=== PATIENT | female | born 1980 | race Caucasian/White ===

== ENCOUNTER → 2018-03-01 09:12 | Outpatient (CLI) | payer OTHER, BC, SELFPAY ==
[2018-03-01 11:03] LABS: Anion Gap 9 (5-15); BUN 8 mg/dL (7-18); BUN/Creat Ratio 9.9 RATIO (10-20); Calcium,Total 8.5 mg/dL (8.5-10.1); Chloride 108 mmol/L (98-107); Cholesterol 149 mg/dL (200); Creatinine, Serum 0.81 mg/dL (0.55-1.02); EST Glomerular Filtration Rate 84 mL/min (>60); Est Glom Filt Rate - Afr Amer 102 mL/min (>60); Glucose 90 mg/dL (74-106); High Density Lipoprotein 34 mg/dL; Potassium 3.7 mmol/L (3.5-5.1); Sodium Level 141 mmol/L (136-145); Thyroid Stim Hormone (TSH) 2.62 uIU/mL (0.358-3.74); Triglycerides 157 mg/dL; Very Low Density Lipoprotein 31 mg/dL (5-40)
== END ==
PROVIDERS: Family Provider Family Medicine; PCP Family Medicine; Visit Provider Family Medicine
DX: E78.5 Hyperlipidemia, unspecified (principal); E03.9 Hypothyroidism, unspecified; R03.0 Elevated blood-pressure reading, without diagnosis of hypertension
CPT/HCPCS: 36415; 80048; 80061; 84443

== ENCOUNTER 2019-09-16 11:41 | Observation (INO) | payer OTHER, BC, SELFPAY ==
[2019-09-16] VITALS (7 sets, daily range): BP systolic 150–172; BP diastolic 93–105; PULSE 87–99; RESP 16–18; TEMP 36.1–36.9; O2SAT 97–100; BMI 34.7
--- NOTE | 2019-09-16 11:51 | US_ITS ---
STUDY: ABDOMINAL ULTRASOUND - RIGHT UPPER QUADRANT REASON FOR VISIT: Female, 39 years old RUQ PAIN TECHNIQUE: Ultrasound evaluation of the right upper quadrant was performed with real-time and static irwin-scale imaging. TECHNICAL QUALITY: Adequate. COMPARISON: None. FINDINGS: Liver: The liver measures 17.1 cm. There is normal echogenicity of the liver. The bile ducts are within normal limits. There is hepatic color flow. The direction of portal flow is hepatopetal. There is no demonstrated mass lesion. Gallbladder: Normal distended gallbladder. The gallbladder wall measures 6 mm. There is a positive sonographic Martell''s sign. There is pericholecystic fluid. Gallbladder full of sludge. Gallstone in the neck of the gallbladder. Common Bile Duct (C.B.D.): The common bile duct measures 4 mm. Pancreas: Normal size of the head, body and tail of the pancreas. There is normal echogenicity of the pancreas. There is no demonstrated pancreatic mass or cyst. Right Kidney: Normal size of the right kidney. The right kidney measures 11.4 cm. Normal renal cortex. The right cortex measures 1.4 cm. There is no demonstrated renal mass or cyst. There is no right hydronephrosis. US/Gallbladder IMPRESSION: Stones and sludge in the gallbladder with gallbladder wall thickening, pericholecystic fluid, positive sonographic Martell sign worrisome for acute cholecystitis. Electronically Signed: Ibrahima Davalos MD at 13:09 EST Tel , Service support ,
[2019-09-16] MEDS: 0.9% Normal Saline 1,000 ML 150 ML IV (12:01)
[2019-09-16 12:08] LABS: Absolute Lymphocyte Count 1.47 X10^3/uL (0.83-4.51); Absolute Neutrophil Count 10.2 X10^3/uL (2.0-7.7); Basophil# 0.02 X10^3/uL; Basophil% 0.2 % (0-1); Hematocrit 41.3 % (37-47); Hemoglobin 13.2 g/dL (12.0-15.0); Lymphocyte # 1.47 X10^3/ul (4.0); Lymphocyte % 11.9 % (19-41); Mean Corpuscular Hgb 25.8 pg (27.0-32.0); Mean Corpuscular Volume 80.8 fL (81-99); Mean Platelet Vol. 9.8 fl (6.2-12.0); Monocyte# 0.67 X10^3/uL; Monocyte% 5.4 % (0-10); NRBC Flagged by Analyzer 0 % (0-5); Neutrophil # 10.15 X10^3/uL (2.7-7.7); Neutrophil % 82.2 % (47-70); Platelet Count 333 K/mm3 (150-450); RBC Distribution Width CV 14.6 % (11.6-14.6); RBC Distribution Width SD 42.5 fl (35.1-43.9); Red Blood Count 5.11 M/mm3 (4.2-5.4); White Blood Count 12.4 K/mm3 (4.4-11.0)
[2019-09-16 12:23] LABS: Internal QC Validated? YES +Cl - CLEAR BKGD; Pregnancy, Serum, hCG Quali. NEGATIVE Negative
[2019-09-16 12:26] LABS: AST(SGOT) 13 U/L (15-37); Alanine Aminotransfer ALT/SGPT 22 U/L (13-56); Albumin, Serum 4.1 g/dL (3.2-5.0); Alkaline Phosphatase 88 U/L (45-117); Anion Gap 8 (5-15); BUN 6 mg/dL (7-18); BUN/Creat Ratio 7.2 RATIO (10-20); Bilirubin, Direct 0.18 mg/dL (0.00-0.30); Calcium,Total 9.6 mg/dL (8.5-10.1); Chloride 102 mmol/L (98-107); Creatinine, Serum 0.83 mg/dL (0.55-1.02); EST Glomerular Filtration Rate 81 mL/min (>60); Est Glom Filt Rate - Afr Amer 98 mL/min (>60); Globulin 4.3 g/dL (2.2-4.2); Glucose 120 mg/dL (74-106); Lipase 135 U/L (73-393); Potassium 3.6 mmol/L (3.5-5.1); Protein, Total 8.4 g/dL (6.4-8.2); Sodium Level 136 mmol/L (136-145)
[2019-09-16] MEDS: Morphine 4 MG/ML Syringe IV (14:17)
[2019-09-16] MEDS: proMETHazine 25 MG/ML Syringe 6.25 MG IV (14:17)
[2019-09-16] MEDS: metroNIDAZOLE 500 MG/100 ML BAG 100 MG IV ×2 (14:24→22:11)
--- NOTE | 2019-09-16 15:04 | ED.DCSUM_ITS ---
History of Present Illness Chief Complaint: Abd Pain Informant: Patient Onset: Days Context: Gradual Onset Timing: Waxes and wanes Current Severity: Mild Maximum Severity: Moderate Narrative: She presents with epigastric and right upper quadrant pain for the past several days. She states it started out in the epigastrium but is now localized more to the right upper quadrant with some radiation to her back. She has had nausea. Pain is significantly worse after eating. No fever noted. - Past Medical History (1) Hypothyroid Status: Chronic Past Medical History - Allergies and Home Meds Allergies/Adverse Reactions: Allergies amoxicillin Allergy (Verified 05/11/15 13:40) Hives Primary Care Physician: Lisa Diana MD [Primary Care Provider] - Prior records reviewed: Yes Lives: With Family Smoking Status: Never smoker Review of Systems General: Reports: Chills. Denies: Fever Eyes: Denies: Visual changes - bilaterally ENT: Denies: Bilateral ear pain Cardiovascular: Denies: Chest pain Respiratory: Denies: Dyspnea, Cough Gastrointestinal: Reports: Abdominal pain, Nausea. Denies: Diarrhea Genitourinary: Denies: Dysuria Musculoskeletal: Reports: Back pain Neurological: Denies: Headache Hematologic: Denies: Easy bruising Physical Exam Vital Signs/Narrative: Vital Signs Temp Pulse Resp BP Pulse Ox 09/16/19 14:27 97 16 172/101 H 98 09/16/19 11:42 97 F L 99 16 170/102 H 97 Inital Vital Signs reviewed: Yes General: Well nourished, Well developed Head: Normocephalic ENT: Moist mucous membranes Neck: Supple Cardiovascular: Regular rate, Regular rhythm Respiratory: No distress, CTA bilaterally Abdomen: Soft, Normal bowel sounds, Tender - Right upper quadrant tenderness palpation.. Negative for: Guarding, Rebound tenderness Extremities: Nontender Skin: Normal color, No rash Neurological: Alert, Oriented x3 Psychological: Normal affect Diagnostic/Tx/Re-eval Impressions Gallbladder Ultrasound 09/16/19 11:51 IMPRESSION: Stones and sludge in the gallbladder with gallbladder wall thickening, pericholecystic fluid, positive sonographic Martell sign worrisome for acute cholecystitis. Electronically Signed: Ibrahima Davalos MD at 13:09 EST Tel , Service support , 09/16/19 11:51 US Gallbladder [Gallbladder] [US] Stat Laboratory Results 09/16/19 09/16/19 09/16/19 12:00 12:00 12:00 WBC 12.4 H RBC 5.11 Hgb 13.2 Hct 41.3 MCV 80.8 L MCH 25.8 L MCHC 32.0 RDW Std Deviation 42.5 RDW Coeff of Marissa 14.6 Plt Count 333 MPV 9.8 Immature Gran % (Auto) 0.300 Neut % (Auto) 82.2 H Lymph % (Auto) 11.9 L [place] % (Auto) 5.4 Eos % (Auto) 0.0 Baso % (Auto) 0.2 Absolute Neuts (auto) 10.2 H Absolute Lymphs (auto) 1.47 Nucleated RBC % 0 Sodium 136 Potassium 3.6 Chloride 102 Carbon Dioxide 26.0 Anion Gap 8 BUN 6 L Creatinine 0.83 Estim Creat Clear Calc 91.80 Est GFR (MDRD) Af Amer 98 Est GFR (MDRD) Non-Af 81 BUN/Creatinine Ratio 7.2 L Glucose 120 H Calcium 9.6 Total Bilirubin 0.70 Direct Bilirubin 0.18 AST 13 L ALT 22 Alkaline Phosphatase 88 Total Protein 8.4 H Albumin 4.1 Globulin 4.3 H Lipase 135 Serum , Qual NEGATIVE - Medical Decision Making Patient initially declined anything for pain. After work-up was completed pain was starting to worsen and she was given a dose of morphine. Secondary to her penicillin allergy she was given Cipro and Flagyl. I spoke with Dr. Shen who will admit the patient to his service with plan for OR tomorrow. ED Disposition - Plan for ED Patient: Disposition: Acute Care Hospital [facility] Diagnosis: Cholecystitis Referrals: Lisa Diana MD [Primary Care Provider] -
--- NOTE | 2019-09-16 15:25 | HP.PCM_ITS ---
Problem List (1) Cholecystitis Status: Acute History of Present Illness Date of Admission: 09/16/19 The patient is a 39 year old F who is been having pain since Sunday. She reports that the pain got worse yesterday. She is having nausea but no vomiting. She has never had pain in this area before. She complains of right upper quadrant pain. She does there is no other abdominal pain. No fevers or chills. Past Medical History Past Medical History (Chronic Problems): Chronic Problems Hypothyroid (Chronic) Allergies amoxicillin Allergy (Verified 05/11/15 13:40) Hives Home Medications: Ambulatory Orders Medication Instructions Recorded Levothyroxine [Synthroid] 75 mcg PO DAILY 04/17/15 Acetaminophen [Tylenol] 650 mg PO DAILY PRN PRN 09/16/19 Elderberry Fruit and Flower [Black 1 cap PO DAILY 09/16/19 Elderberry 575 mg Cap] Multivit with Calcium,Iron,Min 1 tab PO DAILY 09/16/19 [Multiple Vitamins For Women] Omeprazole Magnesium [Prilosec Otc] 20 mg PO DAILY 09/16/19 Surgical History: - - Wrist surgery Lives: With Family Smoking Status: Never smoker - *Family History Maternal History Items: Hypertension Review of Systems Constitutional: Denies: Anorexia, Fever Cardiovascular: Denies: Chest Pain Respiratory: Denies: Cough Gastrointestinal: Reports: Abdominal Pain, Nausea. Denies: Hematemesis, Hematochezia, Vomiting Genitourinary: Denies: Dysuria Gynecological: Denies: Breast symptoms Musculoskeletal: Denies: Joint swelling Skin: Denies: Jaundice Neurological: Denies: Balance problems Hematologic/ Lymphatic: Denies: Anemia VTE Information - Inpt Only VTE Present on Admission: No VTE Mechan Device Prophylaxis: SCD's Patient Problems: Active and Suspected Problems Cholecystitis (Acute) - Physical Exam Vitals/I&O's: Vital Signs Temp Pulse Resp BP Pulse Ox 97 F L 97 16 172/101 H 98 09/16/19 11:42 09/16/19 14:27 09/16/19 14:27 09/16/19 14:27 09/16/19 14:27 Oxygen Delivery Method Room Air Weight: 228 lb Body Mass Index (BMI) 34.7 General: Alert, Oriented x3 Neck: No JVD Lungs: Normal air movement Cardiovascular: Regular rate, Regular Rhythm Abdomen: Soft, Non-Distended, Tender - Tender in the right upper quadrant without any guarding rebound Extremities: No clubbing Skin: No rashes Musculoskeletal: No Muscle Wasting Neurological: Cranial nerves II-XII grossly intact Psych/Mental Status: Normal Affect Laboratory Results 09/16/19 12:00: WBC 12.4 H, RBC 5.11, Hgb 13.2, Hct 41.3, MCV 80.8 L, MCH 25.8 L , MCHC 32.0, RDW Std Deviation 42.5, RDW Coeff of Marissa 14.6, Plt Count 333, MPV 9.8, Immature Gran % (Auto) 0.300, Neut % (Auto) 82.2 H, Lymph % (Auto) 11.9 L, [place] % (Auto) 5.4, Eos % (Auto) 0.0, Baso % (Auto) 0.2, Absolute Neuts (auto) 10.2 H, Absolute Lymphs (auto) 1.47, Nucleated RBC % 0 09/16/19 12:00: Sodium 136, Potassium 3.6, Chloride 102, Carbon Dioxide 26.0, Anion Gap 8, BUN 6 L, Creatinine 0.83, Estim Creat Clear Calc 91.80, Est GFR (MDRD) Af Amer 98, Est GFR (MDRD) Non-Af 81, BUN/Creatinine Ratio 7.2 L, Glucose 120 H, Calcium 9.6, Total Bilirubin 0.70, Direct Bilirubin 0.18, AST 13 L, ALT 22, Alkaline Phosphatase 88, Total Protein 8.4 H, Albumin 4.1, Globulin 4.3 H, Lipase 135 09/16/19 12:00: Serum , Qual NEGATIVE Clinical Impression(s) from Imaging Studies Gallbladder Ultrasound 09/16/19 11:51 IMPRESSION: Stones and sludge in the gallbladder with gallbladder wall thickening, pericholecystic fluid, positive sonographic Martell sign worrisome for acute cholecystitis. Electronically Signed: Ibrahima Davalos MD at 13:09 EST Tel , Service support , Current Medications Acetaminophen (Tylenol) 650 mg PO Q6H PRN PRN PRN Reason: Pain Score 1-10/10 Sodium Chloride () 1,000 mls @ 150 mls/hr IV .Q6H40M ANDREW Last Admin: 09/16/19 12:01 Dose: 150 mls/hr Documented by: Sodium Chloride () 1,000 mls @ 125 mls/hr IV .Q8H ANDREW Ciprofloxacin (Cipro) 400 mg in 200 mls @ 200 mls/hr IV Q12 ANDREW Metronidazole (Flagyl) 500 mg in 100 mls @ 100 mls/hr IV Q8 ANDREW Assessment/Plan All Active Problems Cholecystitis (Acute) 39-year-old female with acute cholecystitis 1. The patient has elevated white count as well as right upper quadrant pain and thickening of the gallbladder wall with stones and sludge. I recommend admitting the patient and performing laparoscopic cholecystectomy tomorrow. I discussed this with the patient in detail. I will admit the patient and keep her n.p.o. overnight with IV antibiotics. 2. I discussed the procedure in detail with the patient. I discussed the risks, benefits, and alternatives of the procedure. I discussed the risks including but not limited to bleeding, infection, injury to surrounding organs such as the liver, bile duct, bowels. I did discuss the possibility of having to convert to an open procedure as well as the possibility that if any injuries occurred this may necessitate further surgery at a tertiary care center. Sukhjinder Shen MD Pager: [facility] [address] [place] [address], [address] [place] [address] Office:
[2019-09-16] MEDS: Ciprofloxacin 400 MG/200 ML BAG 200 MG IV (15:52)
[2019-09-16] MEDS: Morphine 2 MG/ML Syringe IV (16:42)
[2019-09-16] MEDS: 0.9% Normal Saline 1,000 ML 125 ML IV (17:05)
[2019-09-16] MEDS: HYDROmorphone 1 MG/ML Syringe IV ×2 (18:54→22:33)
[2019-09-16] MEDS: 0.9% Saline Lock 10 ML Syringe IV (22:11)
[2019-09-17] VITALS (10 sets, daily range): BP systolic 127–148; BP diastolic 70–96; PULSE 77–102; RESP 16–18; TEMP 36.3–37.6; O2SAT 93–97; BMI 34.7
[2019-09-17] MEDS: 0.9% Normal Saline 1,000 ML 125 ML IV (02:00)
[2019-09-17] MEDS: HYDROmorphone 1 MG/ML Syringe IV ×2 (02:02→06:28)
[2019-09-17] MEDS: Ciprofloxacin 400 MG/200 ML BAG 200 MG IV ×2 (03:46→16:28)
[2019-09-17] MEDS: metroNIDAZOLE 500 MG/100 ML BAG 100 MG IV ×3 (05:14→21:02)
--- NOTE | 2019-09-17 06:00 | EKG12_ITS ---
Test Reason : PREOP Blood Pressure : / mmHG Vent. Rate : 092 BPM Atrial Rate : 092 BPM P-R Int : 142 ms QRS Dur : 078 ms QT Int : 352 ms P-R-T Axes : 057 -05 013 degrees QTc Int : 435 ms Normal sinus rhythm Normal ECG No previous ECGs available Confirmed by SARATH ARCHULETA, FLAVIA ([id number]), assistant film editor EDNA HINKLE ([id number]) on 09/23/2019 9:12:00 AM Referred By: Sukhjinder Shen Confirmed By:FLAVIA CLEMENS MD
[2019-09-17 06:07] LABS: Absolute Lymphocyte Count 1.92 X10^3/uL (0.83-4.51); Absolute Neutrophil Count 6.5 X10^3/uL (2.0-7.7); Basophil# 0.01 X10^3/uL; Basophil% 0.1 % (0-1); Hemoglobin 11.2 g/dL (12.0-15.0); Lymphocyte # 1.92 X10^3/ul (4.0); Lymphocyte % 20.6 % (19-41); Mean Corp Hgb Conc 31.1 g/dL (32-36); Mean Corpuscular Hgb 25.6 pg (27.0-32.0); Mean Corpuscular Volume 82.2 fL (81-99); Mean Platelet Vol. 10.1 fl (6.2-12.0); Monocyte# 0.83 X10^3/uL; Monocyte% 8.9 % (0-10); NRBC Flagged by Analyzer 0 % (0-5); Neutrophil # 6.53 X10^3/uL (2.7-7.7); Neutrophil % 70.2 % (47-70); Platelet Count 256 K/mm3 (150-450); RBC Distribution Width CV 15.1 % (11.6-14.6); RBC Distribution Width SD 45.5 fl (35.1-43.9); Red Blood Count 4.38 M/mm3 (4.2-5.4); White Blood Count 9.3 K/mm3 (4.4-11.0)
[2019-09-17 06:45] LABS: ALB/GLOB Ratio 0.8 RATIO (0.9-2.4); AST(SGOT) 19 U/L (15-37); Alanine Aminotransfer ALT/SGPT 18 U/L (13-56); Albumin, Serum 3.3 g/dL (3.2-5.0); Alkaline Phosphatase 72 U/L (45-117); Anion Gap 7 (5-15); BUN 7 mg/dL (7-18); BUN/Creat Ratio 9.2 RATIO (10-20); Calcium,Total 8.4 mg/dL (8.5-10.1); Chloride 106 mmol/L (98-107); Creatinine, Serum 0.76 mg/dL (0.55-1.02); EST Glomerular Filtration Rate 89 mL/min (>60); Est Glom Filt Rate - Afr Amer 108 mL/min (>60); Estimated Creatinine Clearance 100.25 ml/min; Glucose 122 mg/dL (74-106); Potassium 3.6 mmol/L (3.5-5.1); Protein, Total 7.3 g/dL (6.4-8.2); Sodium Level 140 mmol/L (136-145)
--- NOTE | 2019-09-17 08:00 | GALL_PTH ---
PATIENT: SABRINA GEE LOC: MS3 U#:[id number] AGE/SX: 39/F ROOM: MS304 RE09/16/[address]: Dr. Sukhjinder Shen MD : 1980 BED: 1 DIS: 09/18/2019 SPEC #: [id number] RECD: 09/18/19 09:16 STATUS: IRINA WILLIE #: [id number] DELMA: 09/17/19 08:[address]: Sukhjinder Shen DEPT: SURGICAL PATHOLOGY RECD BY: Juan Logan ENTERED: 09/18/19 11:18 SP TYPE: TOM WILLARD DR: Dr. Lisa Diana MD Tissues: Gallbladder, NOS Procedures: Surgery Specimen Level III HEADER OPERATION: Laparoscopic cholecystectomy with IOC PRE-OP DIAGNOSIS: Acute cholecystitis TISSUE SUBMITTED: Gallbladder MICROSCOPIC DIAGNOSIS Gallbladder, cholecystectomy: Chronic cholecystitis with denudation of mucosa. Cholelithiasis. Benign pericystic lymph node. AM:roxy 09/19/19 MICROSCOPIC DESCRIPTION Slides are reviewed. GROSS DESCRIPTION Received is one container labeled with the patient's name and designated gallbladder. The specimen consists of a gallbladder measuring 11 cm in length and up to 5 cm in diameter. The external surface is pink-loya, smooth and glistening for the most part. Focally it is granular, hemorrhagic and contains cautery artifact. The gallbladder contains brownish mucoid bile and one brown stone measuring 3 x 2 x 1.5 cm. The mucosa is congested and hemorrhagic. The gallbladder wall measures up to 1.5 cm in thickness. An increased amount of subserosal fat is also noted. Test Tube Maker sections from the gallbladder and the cystic duct are submitted in two cassettes. / SJ:roxy 09/18/19 TC:3 CPT: 98968
--- NOTE | 2019-09-17 08:00 | RAD_ITS ---
PROCEDURE: INTRAOPERATIVE CHOLANGIOGRAM DATE OF EXAMINATION: 09/17/2018 INDICATION: Female, 39 years old. Following a laparoscopic cholecystectomy an intraoperative cholangiogram was performed by the surgeon. FLUOROSCOPY TIME (if supplied): (0:17) minutes/seconds. 113 fluoroscopic images TECHNIQUE: Under fluoroscopic guidance an intraoperative cholangiogram was performed with serial digital images obtained. FINDINGS: There is normal opacification of the common bile duct, hepatic duct, right and left hepatic ducts. The ducts are normal in size. There is no mucosal irregularity or intraluminal filling defects. The contrast flows into the second portion of the duodenum. RAD/Cholangiogram/ O R,Initial IMPRESSION: Normal intraoperative cholangiogram. Electronically Signed: Jorge Dolan MD (Brooks) at 13:28 EST , Service support ,
[2019-09-17] MEDS: Lactated Ringers 1,000 ML 100 ML IV ×2 (09:46→12:09)
[2019-09-17] MEDS: Bupiv/Epi 0.25% 30 ML Vial (09:52)
--- NOTE | 2019-09-17 10:13 | OP.PCM_ITS ---
Problem List (1) Cholecystitis Status: Acute Report of Operation Date of Procedure: 09/17/19 Pre-Operative Diagnosis: Acute cholecystitis. Umbilical hernia Post-Operative Diagnosis: Same Surgery/Procedure Performed:: Laparoscopic cholecystectomy with cholangiogram. Umbilical hernia repair Description of Surgical Findings:: Inflammation of the gallbladder with sludge. Umbilical hernia Specimen's removed: Gallbladder and contents Description of Procedure: Patient was brought back to the operating room and general anesthesia was in duced. A curvilinear incision was marked in the inferior umbilicus. An incision was then made and deepened to the fascia. The hernia sac was surrounded and the umbilical stalk was taken off the umbilical hernia. The hernia contents were reduced. The peritoneum was elevated and incised and a port was placed in the abdomen and the abdomen was insufflated to 15 mmHg. The gallbladder was extremely tense. An epigastric 5 mm port was placed under direct visualization as well as 2 right upper quadrant 5 mm ports. The gallbladder was then aspirated and elevated to the right upper quadrant. The gallbladder was very inflamed and the patient had acute cholecystitis. Dark sludge was aspirated. The infundibulum was grasped and retracted laterally and the cystic duct and artery were dissected free and identified. The cystic artery was clipped and then the cystic duct was clipped proximally and then a ashok was made in the mid cystic duct. The Ranfac catheter was placed into the right upper quadrant and into the cystic duct. It was clipped in place and flushed easily. The patient was placed level and cholangiograms were performed. There was good filling of the common bile duct as well as the duodenum. No filling defects were identified. The clip was removed from the catheter and the catheter was removed. 2 distal clips on the cystic duct were placed. The cystic duct was divided. Next 2 additional clips on the artery were placed in the cystic artery was divided. Electrocautery was used to take down the gallbladder from the gallbladder fossa. Hemostasis was obtained. Once the gallbladder was removed he was placed into a bag. The gallbladder fossa was then irrigated and suctioned dry. There appeared to be no bleeding or leaking of bile. Next the 5 mm ports were removed and the gallbladder was removed through the umbilical fascia which had to be elongated to get the gallbladder out. Next the fascia at the umbilicus was closed with 3 interrupted [id number] Vicryl sutures. The subcutaneous tissue was irrigated and suctioned dry. Local anesthetic was applied to all the incisions and then the incisions were all closed with interrupted 4-0 Monocryl sutures as well as Steri-Strips and bandages. Patient tolerated the procedure well was brought to PACU in stable condition. - Admit VTE Documentation VTE Mechan Device Prophylaxis: SCD's
[2019-09-17] MEDS: Acetaminophen 325 MG Tablet 650 MG PO ×2 (12:16→20:39)
[2019-09-17] MEDS: Pantoprazole Sodium 20 MG Tablet PO (13:24)
[2019-09-17] MEDS: Docusate Sodium 100 MG Capsule PO (21:02)
[2019-09-18] MEDS: Lactated Ringers 1,000 ML 100 ML IV (00:39)
[2019-09-18 01:55] VITALS: BP 132/85; PULSE 69; RESP 18; TEMP 36.9; O2SAT 95
[2019-09-18] MEDS: Ciprofloxacin 400 MG/200 ML BAG 200 MG IV (04:27)
[2019-09-18] MEDS: metroNIDAZOLE 500 MG/100 ML BAG 100 MG IV (05:51)
[2019-09-18] MEDS: Levothyroxine 75 MCG Tablet PO (05:51)
[2019-09-18] MEDS: Acetaminophen 325 MG Tablet 650 MG PO (05:51)
[2019-09-18 07:55] VITALS: BP 141/89; PULSE 71; RESP 18; TEMP 36.6; O2SAT 97
--- NOTE | 2019-09-18 08:02 | PCM.PN.SRG ---
Patient Problems: Active and Suspected Problems Cholecystitis (Acute) Subjective: Patient reports she is doing well. She is passing flatus with and tolerating clear liquid diet. - Physical Exam Vitals/I&O's: Vital Signs Temp Pulse Resp BP Pulse Ox 97.8 F 71 18 141/89 H 97 09/18/19 07:55 09/18/19 07:55 09/18/19 07:55 09/18/19 07:55 09/18/19 07:55 Oxygen Delivery Method Room Air Weight: 228 lb 6.382 oz Body Mass Index (BMI) 34.7 Intake and Output for Last 24 Hours 09/16/19 09/17/19 09/18/19 23:59 23:59 23:59 Intake Total 1621.25 / 1621.25 3772.49 / 4572.49 2141.67 / 2141.67 Output Total 2650 / 2650 Balance 1621.25 / 1621.25 1122.49 / 1922.49 2141.67 / 2141.67 General: Alert, Oriented x3 Lungs: Normal air movement Cardiovascular: Regular rate, Regular Rhythm Abdomen: Soft, Non Tender, Non-Distended Current Medications Acetaminophen (Tylenol) 650 mg PO Q6H PRN PRN PRN Reason: Pain Score 1-10/10 Last Admin: 09/18/19 05:51 Dose: 650 mg Documented by: Docusate Sodium (Colace) 100 mg PO BID [facility] Last Admin: 09/17/19 21:02 Dose: 100 mg Documented by: Hydromorphone HCl (Dilaudid Inj) 1 mg IV Q2H PRN PRN PRN Reason: Pain Score 4-10/10 Last Admin: 09/17/19 06:28 Dose: 1 mg Documented by: Sodium Chloride () 250 mls @ 15 mls/hr IV .[id number] PRN PRN Reason: Additional IVPB Infusion Levothyroxine Sodium (Synthroid) 75 mcg PO DAILY@0600 [facility] Last Admin: 09/18/19 05:51 Dose: 75 mcg Documented by: Ondansetron HCl (Zofran) 4 mg IV Q6H PRN PRN PRN Reason: NAUSEA/VOMITING Oxycodone HCl (Oxyir) 5 - 10 mg PO Q4H PRN PRN PRN Reason: Pain Score 6-10/10 Pantoprazole Sodium (Protonix) 20 mg PO DAILY ANDREW Last Admin: 09/17/19 13:24 Dose: 20 mg Documented by: Sodium Chloride () 10 - 40 ml IV UD PRN PRN Reason: SALINE FLUSH Last Admin: 09/16/19 22:11 Dose: 10 ml Documented by: Medical Necessity - Tobacco Use Smoking Status: Never smoker Assessment/Plan All Active Problems Cholecystitis (Acute) 39-year-old female status post laparoscopic cholecystectomy 1. Patient reports she is doing well. I will start her on a regular diet and if she tolerates this discharge her home. Sukhjinder Shen MD Pager: [facility] [address] [place] [address], [address] [place] [address] Office:
--- NOTE | 2019-09-18 08:04 | DS.PCM_ITS ---
Discharge Date and Diagnosis - Problem List Patient Problems: Active and Suspected Problems Cholecystitis (Acute) Date of Admission: 09/16/19 Date of Discharge: 09/18/19 - Primary Discharge Diagnosis Active and Suspected Problems Cholecystitis (Acute) Umbilical hernia - Secondary Discharge Diagnosis Chronic Problems Hypothyroid (Chronic) Hospital Course and Treatment Imaging Results: Clinical Impression(s) from Imaging Studies Gallbladder Ultrasound 09/16/19 11:51 IMPRESSION: Stones and sludge in the gallbladder with gallbladder wall thickening, pericholecystic fluid, positive sonographic Martell sign worrisome for acute cholecystitis. Electronically Signed: Ibrahima Davalos MD at 13:09 EST Tel , Service support , Cholangiogram 09/17/19 08:00 IMPRESSION: Normal intraoperative cholangiogram. Electronically Signed: Jorge Dolan MD (Brooks) at 13:28 EST , Service support , Operations: cholecystecomy Procedures: None Summary of Care Provided: The patient is a 39 year old F who presented with right upper quadrant pain and imaging studies confirmed acute cholecystitis. The following day she was taken for laparoscopic cholecystectomy. She was admitted and given clear liquid diet and advance as tolerated. When she was tolerating a diet she was discharged home in stable condition. Patient Problems: Active and Suspected Problems Cholecystitis (Acute) - Physical Exam Vitals/I&O's: Vital Signs Temp Pulse Resp BP Pulse Ox 97.8 F 71 18 141/89 H 97 09/18/19 07:55 09/18/19 07:55 09/18/19 07:55 09/18/19 07:55 09/18/19 07:55 Oxygen Delivery Method Room Air Weight: 228 lb 6.382 oz Body Mass Index (BMI) 34.7 Intake and Output for Last 24 Hours 09/16/19 09/17/19 09/18/19 23:59 23:59 23:59 Intake Total 1621.25 / 1621.25 3772.49 / 4572.49 2141.67 / 2141.67 Output Total 2650 / 2650 Balance 1621.25 / 1621.25 1122.49 / 1922.49 2140.67 / 2140.67 Current Medications Acetaminophen (Tylenol) 650 mg PO Q6H PRN PRN PRN Reason: Pain Score 1-1010 Last Admin: 09/18/19 05:51 Dose: 650 mg Documented by: Docusate Sodium (Colace) 100 mg PO BID [facility] Last Admin: 09/17/19 21:02 Dose: 100 mg Documented by: Hydromorphone HCl (Dilaudid Inj) 1 mg IV Q2H PRN PRN PRN Reason: Pain Score 4-10/10 Last Admin: 09/17/19 06:28 Dose: 1 mg Documented by: Sodium Chloride () 250 mls @ 15 mls/hr IV .[id number] PRN PRN Reason: Additional IVPB Infusion Levothyroxine Sodium (Synthroid) 75 mcg PO DAILY@0600 [facility] Last Admin: 09/18/19 05:51 Dose: 75 mcg Documented by: Ondansetron HCl (Zofran) 4 mg IV Q6H PRN PRN PRN Reason: NAUSEA/VOMITING Oxycodone HCl (Oxyir) 5 - 10 mg PO Q4H PRN PRN PRN Reason: Pain Score 6-10/10 Pantoprazole Sodium (Protonix) 20 mg PO DAILY [facility] Last Admin: 09/17/19 13:24 Dose: 20 mg Documented by: Sodium Chloride () 10 - 40 ml IV UD PRN PRN Reason: SALINE FLUSH Last Admin: 09/16/19 22:11 Dose: 10 ml Documented by: Discharge Diet: Light diet - advance as tolerated Discharge Activity: Return to Normal Activity, May Not Drive - for 2-3 days or while taking narcotic pain medicataions., May Shower, - - Do not drive, work heavy equipment or sign legal documents for 24 hours. Additional Activity Instructions:: Pain medication may cause nausea. You should typically eat light foods as you take your pain medications. Pain medication may also cause constipation. If this is a problem for you, please discuss with your doctor. Call your doctor if your incision/area has: Continuous Slow Oozing, Sudden Increased Bleeding, Increased Pain/ Swelling, Increased Redness, Foul Smelling Discharge, Fever of 101 or Higher Call your doctor if you observe: Fever of 101 or Higher Suture Line Care: Avoid Pulling/Pushing, Avoid Pinching/Bending Additional Dressing/Incision Instructions:: Leave operative bandaids on for 2 days. When you remove dressing, leave Steri-Strips on until your follow-up appointment, or until the Steri-Strips fall off on their own. Home Medications: Medications to take at Discharge Levothyroxine [Synthroid] 75 mcg PO DAILY 04/17/15 Acetaminophen [Tylenol] 650 mg PO DAILY PRN PRN 09/16/19 Elderberry Fruit and Flower [Black Elderberry 575 mg Cap] 1 cap PO DAILY 09/16/19 Multivit with Calcium,Iron,Min [Multiple Vitamins For Women] 1 tab PO DAILY 09/16/19 Omeprazole Magnesium [Prilosec Otc] 20 mg PO DAILY 09/16/19 Primary Care Physician: Lisa Diana MD [Primary Care Provider] - Please Follow Up With: Sukhjinder Shen MD When: Please call to schedule 2 week follow up appointment. [phone] Medical Necessity - Tobacco Use Smoking Status: Never smoker Meaningful Use Info Meaningful Use Diagnoses (Choose all that apply): None applicable
--- NOTE | 2019-09-18 08:13 | PCM.WORK.EX ---
Work/School Excuse Work/School Excuse for:: Patient Please excuse this person from:: Work From: 09/16/19 through: 10/01/19 - Unable to lift over 20 lbs for 2 weeks
[2019-09-18] MEDS: Pantoprazole Sodium 20 MG Tablet PO (10:46)
[2019-09-18] MEDS: Docusate Sodium 100 MG Capsule PO (10:47)
[2019-09-18] MEDS: oxyCODONE 5 MG Tablet PO (10:48)
[2019-09-18 12:05] VITALS: BP 141/89; PULSE 71; RESP 18; TEMP 36.6; O2SAT 97
== END 2019-09-18 11:20 | disposition home or self-care (01) ==
LOC: ED 15:07 → MS3 15:36
PROVIDERS: Admitting Provider Surgery; Emergency Provider Emergency Medicine; Family Provider Family Medicine; PCP Family Medicine; Referring Provider Surgery; Visit Provider Surgery
PROC: (CPT 47610; principal; 2019-09-17 07:40)
DX: K80.10 Calculus of gallbladder with chronic cholecystitis without obstruction (principal); Z79.899 Other long term (current) drug therapy; E03.9 Hypothyroidism, unspecified; K42.9 Umbilical hernia without obstruction or gangrene
CPT/HCPCS: 47563; 49652; 36415; 74300; 76000; 76705; 80048; 80053; 80076; 83690; 84443; 84703; 85025; 88304; 93005; 96361; 96365; 96366; 96367; 96375; 96376; 99218; 99251; 99285; J7030; J7120; A4216; G0378; G0463; J0744; J2405

== ENCOUNTER → 2020-02-16 10:25 | Outpatient (CLI) | payer OTHER, BC, SELFPAY ==
[2019-09-17 07:42] VITALS: BMI 34.7
== END ==
PROVIDERS: PCP Family Medicine; Referring Provider Family Medicine; Visit Provider Family Medicine
DX: E03.9 Hypothyroidism, unspecified (principal)
CPT/HCPCS: 36415; 84443

== ENCOUNTER → 2020-04-26 09:00 | Outpatient (CLI) | payer OTHER, BC, SELFPAY ==
[2019-09-17 07:42] VITALS: BMI 34.7
[2020-04-26 10:15] LABS: ALB/GLOB Ratio 0.9 RATIO (0.9-2.4); AST(SGOT) 13 U/L (15-37); Alanine Aminotransfer ALT/SGPT 17 U/L (13-56); Albumin, Serum 3.7 g/dL (3.2-5.0); Alkaline Phosphatase 89 U/L (45-117); Anion Gap 7 (5-15); BUN 6 mg/dL (7-18); BUN/Creat Ratio 6.9 RATIO (10-20); Calcium,Total 8.7 mg/dL (8.5-10.1); Chloride 102 mmol/L (98-107); Cholesterol 167 mg/dL (200); Creatinine, Serum 0.87 mg/dL (0.55-1.02); EST Glomerular Filtration Rate 76 mL/min (>60); Est Glom Filt Rate - Afr Amer 92 mL/min (>60); Globulin 4.1 g/dL (2.2-4.2); Glucose 104 mg/dL (74-106); High Density Lipoprotein 33 mg/dL; Potassium 3.7 mmol/L (3.5-5.1); Protein, Total 7.8 g/dL (6.4-8.2); Sodium Level 139 mmol/L (136-145); Triglycerides 241 mg/dL; Very Low Density Lipoprotein 48 mg/dL (5-40)
== END ==
PROVIDERS: PCP Family Medicine; Referring Provider Family Medicine; Visit Provider Family Medicine
DX: Z13.1 Encounter for screening for diabetes mellitus (principal); Z13.220 Encounter for screening for lipoid disorders
CPT/HCPCS: 36415; 80053; 80061

== ENCOUNTER 2021-09-27 13:50 | Outpatient (CLI) | payer OTHER, SELFPAY ==
[2021-09-27 15:41] LABS: Thyroid Stim Hormone (TSH) 3.05 uIU/mL (0.358-3.74)
== END 2021-09-27 23:59 | disposition short-term general hospital (02) ==
LOC: MFPLAB 13:54
PROVIDERS: PCP Nurse Practitioner Family; Referring Provider Nurse Practitioner Family; Visit Provider Nurse Practitioner Family
DX: E03.9 Hypothyroidism, unspecified (principal)
CPT/HCPCS: 36415; 84443

== ENCOUNTER → 2022-05-26 | Outpatient (CLI) | payer OTHER, SELFPAY ==
[2022-05-26 17:45] LABS: Thyroid Stim Hormone (TSH) 3.13 uIU/mL (0.358-3.74)
== END | disposition home or self-care (01) ==
LOC: MFPLAB 14:40
PROVIDERS: PCP Family Medicine; Referring Provider Family Medicine; Visit Provider Family Medicine
DX: E03.9 Hypothyroidism, unspecified (principal)
CPT/HCPCS: 36415; 84443

== ENCOUNTER → 2023-03-26 | Outpatient (CLI) | payer OTHER, BC, SELFPAY ==
[2023-03-26 12:25] LABS: Absolute Lymphocyte Count 1.34 X10^3/uL (0.83-4.51); Absolute Neutrophil Count 2.4 X10^3/uL (2.0-7.7); Basophil# 0.04 X10^3/uL; Eosinophil# 0.03 X10^3/uL; Eosinophils% 0.7 % (0-5); Hematocrit 32.9 % (37-47); Lymphocyte # 1.34 X10^3/ul (0.83-4.51); Lymphocyte % 33.2 % (19-41); Mean Corp Hgb Conc 27.4 g/dL (32-36); Mean Corpuscular Hgb 19.4 pg (27.0-32.0); Mean Corpuscular Volume 70.8 fL (81-99); Mean Platelet Vol. 9.7 fl (6.2-12.0); Monocyte# 0.27 X10^3/uL; Monocyte% 6.7 % (0-10); NRBC Flagged by Analyzer 0 % (0-5); Neutrophil # 2.35 X10^3/uL (2.7-7.7); Neutrophil % 58.2 % (47-70); Platelet Count 382 K/mm3 (150-450); RBC Distribution Width CV 18.5 % (11.6-14.6); RBC Distribution Width SD 46.5 fl (35.1-43.9); Red Blood Count 4.65 M/mm3 (4.2-5.4)
[2023-03-26 12:51] LABS: Hemoglobin A1c 5.8 % (3.8-5.6)
[2023-03-26 13:13] LABS: ALB/GLOB Ratio 0.8 RATIO (0.9-2.4); AST(SGOT) 16 U/L (15-37); Alanine Aminotransfer ALT/SGPT 18 U/L (13-56); Albumin, Serum 3.6 g/dL (3.2-5.0); Alkaline Phosphatase 80 U/L (45-117); Anion Gap 6 (5-15); BUN 5 mg/dL (7-18); BUN/Creat Ratio 6.3 RATIO (10-20); Calcium,Total 8.4 mg/dL (8.5-10.1); Chloride 105 mmol/L (98-107); Cholesterol 156 mg/dL (200); EST Glomerular Filtration Rate 83 mL/min (>60); Est Glom Filt Rate - Afr Amer 101 mL/min (>60); Globulin 4.3 g/dL (2.2-4.2); Glucose 104 mg/dL (74-106); High Density Lipoprotein 30 mg/dL; Potassium 3.1 mmol/L (3.5-5.1); Protein, Total 7.9 g/dL (6.4-8.2); Sodium Level 138 mmol/L (136-145); Thyroid Stim Hormone (TSH) 3.04 uIU/mL (0.358-3.74); Triglycerides 177 mg/dL; Very Low Density Lipoprotein 35 mg/dL (5-40)
== END | disposition home or self-care (01) ==
LOC: MFPLAB 11:12
PROVIDERS: PCP Family Medicine; Visit Provider Family Medicine
DX: R03.0 Elevated blood-pressure reading, without diagnosis of hypertension (principal)
CPT/HCPCS: 36415; 80053; 80061; 83036; 84443; 85025

== ENCOUNTER → 2023-04-03 | Outpatient (CLI) | payer OTHER, BC, SELFPAY ==
[2023-04-03 10:28] LABS: Absolute Lymphocyte Count 1.71 X10^3/uL (0.83-4.51); Absolute Neutrophil Count 2.8 X10^3/uL (2.0-7.7); Basophil# 0.03 X10^3/uL; Basophil% 0.6 % (0-1); Eosinophil# 0.04 X10^3/uL; Eosinophils% 0.8 % (0-5); Hematocrit 32.3 % (37-47); Hemoglobin 8.9 g/dL (12.0-15.0); Lymphocyte # 1.71 X10^3/ul (0.83-4.51); Lymphocyte % 34.7 % (19-41); Mean Corp Hgb Conc 27.6 g/dL (32-36); Mean Corpuscular Hgb 19.6 pg (27.0-32.0); Mean Corpuscular Volume 71.1 fL (81-99); Mean Platelet Vol. 10.2 fl (6.2-12.0); Monocyte# 0.32 X10^3/uL; Monocyte% 6.5 % (0-10); NRBC Flagged by Analyzer 0 % (0-5); Neutrophil # 2.82 X10^3/uL (2.7-7.7); Neutrophil % 57.2 % (47-70); Platelet Count 354 K/mm3 (150-450); RBC Distribution Width CV 18.8 % (11.6-14.6); RBC Distribution Width SD 47.8 fl (35.1-43.9); Red Blood Count 4.54 M/mm3 (4.2-5.4); White Blood Count 4.9 K/mm3 (4.4-11.0)
[2023-04-03 10:57] LABS: Vitamin B12 380 pg/mL (211-911)
[2023-04-03 11:04] LABS: Anion Gap 5 (5-15); BUN 7 mg/dL (7-18); BUN/Creat Ratio 8.3 RATIO (10-20); Calcium,Total 8.5 mg/dL (8.5-10.1); Chloride 108 mmol/L (98-107); Creatinine, Serum 0.85 mg/dL (0.55-1.02); EST Glomerular Filtration Rate 78 mL/min (>60); Est Glom Filt Rate - Afr Amer 94 mL/min (>60); Ferritin 3 ng/mL (8-252); Glucose 111 mg/dL (74-106); Iron 24 ug/dL (50-170); Iron Binding Capacity,Total 392 ug/dL (250-450); Potassium 3.6 mmol/L (3.5-5.1); Sodium Level 140 mmol/L (136-145)
== END | disposition home or self-care (01) ==
LOC: MFPLAB 09:16
PROVIDERS: PCP Family Medicine; Visit Provider Family Medicine
DX: D64.9 Anemia, unspecified (principal); E87.6 Hypokalemia
CPT/HCPCS: 36415; 80048; 82607; 82728; 82746; 83540; 83550; 85025

== ENCOUNTER → 2023-04-30 | Outpatient (CLI) | payer OTHER, BC, SELFPAY ==
--- NOTE | 2023-04-30 17:49 | US_ITS ---
STUDY: ULTRASOUND OF THE FEMALE PELVIS - COMPLETE REASON FOR EXAM: Female, 43 years old. anemia/abnormal uterine bleeding LMP: 04/12/2023 TECHNIQUE: Transabdominal and Transvaginal TECHNICAL QUALITY: Adequate. COMPARISON: None. FINDINGS: The uterus is anteverted and is in a midline position. The uterus measures 8.8 x 6.1 x 4.5 cm. Normal uterine cervix. The endometrium measures 10 mm in thickness, and is hyperechoic. There is no demonstrated endometrial mass. There is no demonstrated myometrial mass. I.U.D. - The patient does not have an I.U.D. The right ovary is visualized. The right ovary measures 3.8 x 2.0 x 1.7 cm. There is no right ovarian cyst or ovarian mass. There is no visualized right adnexal mass or complex lesion. There is normal arterial and normal venous vascularity. The left ovary is visualized. The left ovary measures 3.0 x 2.6 x 2.4 cm. There is no left ovarian cyst or ovarian mass. There is no visualized left adnexal mass or complex lesion. There is normal arterial and normal venous vascularity. There is no fluid in the cul-de-sac. The pre void volume of the bladder was 214 ml. The post void volume of the bladder was ml. Polycystic ovary disease: No. US/Pelvic (Non ) IMPRESSION: Normal female pelvis. Electronically Signed: Ibrahima Davalos MD at 20:24 EDT ,
== END | disposition home or self-care (01) ==
LOC: OPUS 17:46 → US 17:48
PROVIDERS: PCP Family Medicine; Referring Provider Obstetrics & Gynecology; Visit Provider Obstetrics & Gynecology
DX: N92.0 Excessive and frequent menstruation with regular cycle (principal); D50.0 Iron deficiency anemia secondary to blood loss (chronic)
CPT/HCPCS: 76830; 76856

== ENCOUNTER → 2023-06-11 | Outpatient (CLI) | payer OTHER, BC, SELFPAY ==
--- NOTE | 2023-06-11 15:15 | EMB_PTH ---
PATIENT: SABRINA GEE LOC: [facility] U#:[id number] AGE/SX: 43/F ROOM: RE06/11/[address]: Dr. Leatha Lopez DO : 1980 BED: DIS: 06/11/2023 SPEC #: [id number] RECD: 06/11/23 16:36 STATUS: IRINA TAPIA #: [id number] DELMA: 06/11/23 15:[address]: Leatha Lopez DEPT: SURGICAL PATHOLOGY RECD BY: Radha Betancourt ENTERED: 06/12/23 07:57 SP TYPE: ENDOM BX/C MONTSE DR: Antionette Hernandez DO Tissues: Endometrium, NOS Procedures: Surgery Specimen Level IV HEADER OPERATION: Endometrial biopsy PRE-OP DIAGNOSIS: Menorrhagia TISSUE SUBMITTED: Endometrial lining MICROSCOPIC DIAGNOSIS Endometrial biopsy: Mildly disordered proliferative endometrium with focal glandular breakdown. ADRIENNE:roxy 06/13/2023 COMMENT Case has been reviewed in consultation with Dr. Rojas who concurs with the above diagnosis. IDC:AM MICROSCOPIC DESCRIPTION Slides are reviewed. GROSS DESCRIPTION Received is one container labeled with the patient's name and not further designated. The specimen consists of multiple irregular fragments of loya-brown mucoid tissue that in aggregate measure 2.0 x 0.5 x 0.1 cm. The specimen is totally submitted in one cassette. / SJ:roxy 06/12/2023 TC:5 CPT: 70384
== END | disposition home or self-care (01) ==
LOC: LABSPEC 16:43
PROVIDERS: PCP Family Medicine; Referring Provider Obstetrics & Gynecology; Visit Provider Obstetrics & Gynecology
DX: N92.0 Excessive and frequent menstruation with regular cycle (principal)
CPT/HCPCS: 88305

== ENCOUNTER → 2023-10-11 | Outpatient (CLI) | payer OTHER, BC, SELFPAY ==
--- NOTE | 2023-10-11 16:54 | US_ITS ---
STUDY: THYROID ULTRASOUND REASON FOR EXAM: Female, 43 years old. Fullness on R side of neck. TECHNIQUE: Ultrasound evaluation of the thyroid was performed with real-time and static irwin-scale imaging. COMPARISON: None. FINDINGS: RIGHT LOBE: The right lobe of the thyroid gland measures 7.1 x 2.8 x 3.4 cm. There is a heterogeneous echotexture. There is a solid/cystic 0.9 cm complex nodule. This nodule is mixed cystic and solid, hypoechoic, lbuww-ptuh-gglf, smoothly marginated and contains no echogenic foci. TI-RADS points: 3. TI-RADS category: TR3. This nodule is mildly suspicious but no FNA or follow-up is necessary given the small size of this nodule. LEFT LOBE: The left lobe of the thyroid gland measures 6.6 x 2.5 x 3.5 cm. There is a heterogeneous echotexture. There is a solid well-defined 2.1 x 1.7 x 1.7 cm well-defined hypoechoic nodule. This nodule is solid or almost completely solid, hypoechoic, kzefg-hjjx-hfzb, smoothly marginated and contains no echogenic foci. TI-RADS points: 4. TI-RADS category: TR4. This nodule is moderately suspicious. Recommend FNA evaluation. ISTHMUS: The isthmus measures 1.06 cm. The regional lymph nodes are normal. US/Thyroid IMPRESSION: Diffusely enlarged heterogeneous thyroid gland with bilateral nodules. Nodule in the right lobe is complex, solid and cystic, while the nodule in the left lobe is solid and enlarged. Catheterization of each nodule and follow-up as described above Electronically Signed: Sameer Tom MD at 20:29 EST ,
--- OUTSIDE RECORDS SUMMARY | 2023-10-11 16:57 | XMS RPT_ITS | CCD ---
Author Name Unknown Address [address] [place] [address] Organization [facility] Care Team Providers Care Punch Operator Name Role Phone UNKNOWN, PROVIDER Attending Unavailable Mike Garza MD Primary Care Provider Allergies Allergy Classification Reported Allergen(s) Allergy Type Date of Onset Reaction(s) Facility (2 sources) Amoxicillin Drug Allergy 01-30-2022 [facility] Work Phone: Medications Completed/Discontinued Medications Medication Drug Class(es) Dates Sig (Normalized) Sig (Original) levothyroxine sodium 0.075 mg oral tablet (2 sources) l-Thyroxine Start: 01-18-2022 take 1 tablet by mouth once daily levothyroxine (SYNTHROID) 75 mcg tablet Take 75 mcg by mouth once daily. 0 01/18/2022 Active Problems Active Problems Problem Classification Problem Date Documented Da te Episodic/Chronic Immunizations and screening for infectious disease (1 source) Suspected disease caused by 2019-nCoV; Translations: [Suspected 2019 novel coronavirus infection] Episodic Past or Other Problems Problem Classification Problem Date Documented Da te Episodic/Chronic Unclassified (1 source) URGENCY,PAIN URINATING,CRAMPI NG Onset: 10-14-2018 Results Test Name Value Interpretation Reference Range Facil ity Vital Signs Date Time Vital Sign Value Performing Clinician Sonal alan 01-30-2022 08:04-0400 Body temperature 98.71 [degF] Vicky Kaur PA-C Work Phone: [facility] 01-30-2022 08:04-0400 Body weight 114.31 kg Vicky Kaur PA-C Work Phone: [facility] 01-30-2022 08:04-0400 Diastolic blood pressure 90 mm[Hg] Vicky Kaur PA-C Work Phone: [facility] 01-30-2022 08:04-0400 Heart rate 114 /min Vicky Kaur PA-C Work Phone: [facility] 01-30-2022 08:04-0400 Respiratory rate 16 /min Vicky Kaur PA-C Work Phone: [facility] 01-30-2022 08:04-0400 SaO2% (BldA) [Mass fraction] 98 % Vicky Kaur PA-C Work Phone: [facility] 01-30-2022 08:04-0400 Systolic blood pressure 148 mm[Hg] Vicky Kaur PA-C Work Phone: [facility] Encounters Encounter Date Encounter Type Care Provider Facility Start: 01-31-2022 Telephone encounter Susan Julia ggs FIXTURE BUILDER.DRESSAGE JUDGE Work Phone: [facility] Plan of Treatment Date Care Activity Detail Author Start: 01-30-2022 End: 02-13-2022 Influenza virus A and B RNA and SARS-CoV-2 (COVID-19) N gene panel - Respiratory specimen by GRAY with probe detection COVID WITH FLUA+B, ROUTINE Microbiology Routine Suspected 2019 novel coronavirus infection Expected: 01/30/2022, Expires: 02/13/2022 [facility] Work Phone: Immunizations Immunization Date Immunization Notes Care Provider [facility] 07-08-2015 influenza, injectabl e, quadrivalent, contains preservative Vicky Kaur PA-C Work Phone: [facility] Payers Date Payer Category Payer Unknown [employer] PPO [id number] 2021-Present [phone] [address] [place] [address] PPO [id number] 2017 Unknown MMO MMO [employer] [id number] 2017-Present [phone] [address] [place] [address] PPO [id number] 2016 Unknown [id number] Unknown [id number] Social History Date Type Detail Facility Start: 01-30-2022 Tobacco smoking stat us OKIS Never smoked tobacco [facility] Work Phone: Start: 01-30-2022 Tobacco use and exposure Smokeless tobacco non-user [facility] Work Phone: Start: 1980 Sex Assigned At Not on file C [facility] Start: 01-20-2022 End: 01-30-2022 Exposure to SARS-CoV-2 (event) Not sure [facility] Work Phone: Note 01-31-2022 Telephone Encounter - Anna Duran LPN - 01/31/2022 8:52 AM EDTTelephone Encounter - Anna Duran LPN - 01/31/2022 8:52 AM EDT Note Date & Type Note Facility 01-31-2022 Miscellaneous Notes Patient notified.Anna Duran LPN ----- Message from Susan Vela APRN.DRESSAGE JUDGE sent at 01/31/2022 8:20 AM EDT ----- COVID 19 positive. Please inform patient. Treatment is aimed at symptoms. Continue plan discussed at time of exam. Follow up with PCP. documented in this encounter [facility] Progress note 01-30-2022 Note Date & Type Note Facility 01-30-2022 Note HNO ID: [id number] Author: Vicky Kaur PA-C Service: ? Author Type: Physician Learning Technologies Specialist Type: Progress Notes Filed: 01/30/2022 9:21 AM Note Text: This note was created using NoteWriter. Subjective Gann Messerly is a 41 year old female. HPI Patient presents with cough, nasal congestion over the past 3 days. She thought at first it was allergies however her son is ill and she was informed by some friends that they were positive for COVID and she was around them. She has had a headache. She tried Flonase and Zyrtec mtww-hbo-lbzexrx. No fever that she knows of. She has had some nausea. No diarrhea. No chest pain or shortness of breath. She has not had COVID previously. She is vaccinated. Review of Systems Constitutional: Negative. HENT: Positive for congestion, ear pain, rhinorrhea and sore throat. Respiratory: Positive for cough. Cardiovascular: Negative. Gastrointestinal: Positive for nausea. Negative for abdominal pain, diarrhea and vomiting. Genitourinary: Negative. Musculoskeletal: Negative. Neurological: Positive for headaches. All other systems reviewed and are negative. No past medical history on file. Current Outpatient Medications Medication Sig Dispense Refill - therapeutic multivitamin w/ iron (THERAGRAN-M) 27-0.4 mg tablet Multivit With Calcium,Iron,Min Active 1 TAB DAILY September 16, 2019 3:09pm - levothyroxine (SYNTHROID) 75 mcg tablet Take 75 mcg by mouth once daily. No current facility-administered medications for this visit. No past surgical history on file. No family history on file. Social History Tobacco Use - Smoking status: Never Smoker - Smokeless tobacco: Never Used Substance Use Topics - Alcohol use: Not on file - Drug use: Not on file Objective BP 148/90 Pulse 114 Temp 37.1 ?C (98.7 ?F) Resp 16 Wt 114.3 kg (252 lb) SpO2 98% Physical Exam Vitals reviewed. Constitutional: Appearance: Normal appearance. HENT: Head: Normocephalic and atraumatic. Right Ear: Ear canal and external ear normal. Left Ear: Ear canal and external ear normal. Ears: Comments: Bilateral serous middle ear effusion Nose: Congestion present. Mouth/Throat: Mouth: Mucous membranes are moist. Pharynx: Oropharynx is clear. Cardiovascular: Rate and Rhythm: Normal rate and regular rhythm. Heart sounds: Normal heart sounds. Pulmonary: Effort: Pulmonary effort is normal. Breath sounds: Normal breath sounds. Musculoskeletal: Cervical back: Neck supple. Lymphadenopathy: Cervical: No cervical adenopathy. Skin: General: Skin is warm and dry. Neurological: General: No focal deficit present. Mental Status: She is alert and oriented to person, place, and time. Assessment and Plan ASSESSMENT/PLAN: 1. Suspected 2019 novel coronavirus infection - ICD9: V01.79, ICD10: Z20.822 COVID testing pending. Discussed the use of xvjj-cze-vnsjrhj medications. Discussed red flags and quarantine. Patient agreeable with plan. - COVID WITH FLUA+B, ROUTINE Vicky Kaur PA-C [facility] Influenza virus A and B RNA and SARS-CoV-2 (COVID-19) N gene panel GRAY+probe (Resp) 01-30-2022 Note Date & Type Note Facility 01-30-2022 Influenza virus A and B RNA and SARS-CoV-2 (COVID-19) N gene panel GRAY+probe (Resp) COVID 19 RESULT: SARS-CoV-2 (Agent of COVID-19) Detected by RT-PCR or equivalent method. ezequiel GSHU-GgW-1_[employer] (STACEY)_EUA This test was developed and its performance characteristics determined by [facility]'s [facility] [place]. This test has been authorized by FDA under an Emergency Use Authorization (EUA). This test has been validated in accordance with the FDA's Guidance Document Policy for Diagnostics Testing in Laboratories Certified to Perform High Complexity Testing under CLIA prior to Emergency use Authorization for Coronavirus Disease 2019 during the Public Health Emergency issued on November 15, 2019. Test performed by [facility], [facility] [place], [address] [place] [address]. INFLUENZA A PCR: Negative for Influenza A by RT-PCR INFLUENZA B PCR: Negative for Influenza B by RT-PCR [facility] History of Present illness Narrative 01-30-2022 Vicky Kaur PA-C - 01/30/2022 9:19 AM EDT Note Date & Type Note Facility 01-30-2022 History of Presen t illness Narrative This note was created using [employer]. Subjective Sanjuanita Jansen is a 41 year old female. HPI Patient presents with cough, nasal congestion over the past 3 days. She thought at first it was allergies however her son is ill and she was informed by some friends that they were positive for COVID and she was around them. She has had a headache. She tried Flonase and Zyrtec tiac-rdu-piyadub. No fever that she knows of. She has had some nausea. No diarrhea. No chest pain or shortness of breath. She has not had COVID previously. She is vaccinated. Review of Systems Constitutional: Negative. HENT: Positive for congestion, ear pain, rhinorrhea and sore throat. Respiratory: Positive for cough. Cardiovascular: Negative. Gastrointestinal: Positive for nausea. Negative for abdominal pain, diarrhea and vomiting. Genitourinary: Negative. Musculoskeletal: Negative. Neurological: Positive for headaches. All other systems reviewed and are negative. No past medical history on file. Current Outpatient Medications Medication Sig Dispense Refill therapeutic multivitamin w/ iron (THERAGRAN-M) 27-0.4 mg tablet Multivit With Calcium,Iron,Min Active 1 TAB DAILY September 16, 2019 3:09pm levothyroxine (SYNTHROID) 75 mcg tablet Take 75 mcg by mouth once daily. No current facility-administered medications for this visit. No past surgical history on file. No family history on file. Social History Tobacco Use Smoking status: Never Smoker Smokeless tobacco: Never Used Substance Use Topics Alcohol use: Not on file Drug use: Not on file Objective BP 148/90 Pulse 114 Temp 37.1 C (98.7 F) Resp 16 Wt 114.3 kg (252 lb) SpO2 98% Physical Exam Vitals reviewed. Constitutional: Appearance: Normal appearance. HENT: Head: Normocephalic and atraumatic. Right Ear: Ear canal and external ear normal. Left Ear: Ear canal and external ear normal. Ears: Comments: Bilateral serous middle ear effusion Nose: Congestion present. Mouth/Throat: Mouth: Mucous membranes are moist. Pharynx: Oropharynx is clear. Cardiovascular: Rate and Rhythm: Normal rate and regular rhythm. Heart sounds: Normal heart sounds. Pulmonary: Effort: Pulmonary effort is normal. Breath sounds: Normal breath sounds. Musculoskeletal: Cervical back: Neck supple. Lymphadenopathy: Cervical: No cervical adenopathy. Skin: General: Skin is warm and dry. Neurological: General: No focal deficit present. Mental Status: She is alert and oriented to person, place, and time. Assessment and Plan ASSESSMENT/PLAN: 1. Suspected 2019 novel coronavirus infection - ICD9: V01.79, ICD10: Z20.822 COVID testing pending. Discussed the use of uxsy-dsh-ksjqtum medications. Discussed red flags and quarantine. Patient agreeable with plan. - COVID WITH FLUA+B, ROUTINE Vicky Kaur PA-C documented in this encounter [facility] Evaluation note Note Date & Type Note Facility documented in this encounter [facility] Summary Purpose Family History No Family History Records FoundNo Family History Records Found Advance Directives No Advanced Directives Records FoundNo Advanced Directives Records Found Health Concerns Infection Onset Date Last Indicated Resolved Time COVID-19 Rule-Out 01/30/2022 01/30/2022 Infection Onset Date Last Indicated Resolved Time COVID-19 Confirmed 01/30/2022 01/30/2022 Additional Source Comments INFORMATION SOURCE (unrecogn ized section and content) DATE CREATED AUTHOR AUTHOR'S ORGANIZ ATION 02/02/2022 [facility] Source Comments (unrecognize d section and content) In the event this informatio n is protected by the Federal Confidentiality of Alcohol and Drug Abuse Patient Records regulations: The Federal rules restrict any use of the information to criminally investigate or prosecute any alcohol or drug abuse patient.[facility] the event this information is protected by the Federal Confidentiality of Alcohol and Drug Abuse Patient Records regulations: The Federal rules restrict any use of the information to criminally investigate or prosecute any alcohol or drug abuse patient.[facility] Reason for Visit (unrecogniz ed section and content) Reason Comments Results Care Teams (unrecognized sec tion and content) Punch Operator Relationship Specialty Start Date End Date Mike Garza MD PCP - General Family Practice 07/08/15 FOR RECORDS PERTAINING TO PATIENTS WHO ARE OR HAVE BEEN ENROLLED IN A CHEMICAL DEPENDENCY/SUBSTANCEABUSE PROGRAM, SOME INFORMATION MAY BE OMITTED. This clinical summary was aggregated from multiple sources. Caution should be exercised in using it in the provision of clinical care. This summary normalizes information from multiple sources, and as a consequence, information in this document may materially change the coding, format and clinical context of patient data. In addition, data may be omitted in some cases. CLINICAL DECISIONS SHOULD BE BASED ON THE PRIMARY CLINICAL RECORDS. [employer] [facility]. provides no warranty or guarantee of the accuracy or completeness of information in this document.
== END | disposition home or self-care (01) ==
LOC: US 16:53
PROVIDERS: PCP Family Medicine; Referring Provider Family Medicine; Visit Provider Family Medicine
DX: R22.1 Localized swelling, mass and lump, neck (principal)
CPT/HCPCS: 76536

== ENCOUNTER → 2023-12-12 | Outpatient (CLI) | payer OTHER, BC, SELFPAY ==
--- NOTE | 2023-12-12 | FLU_PTH ---
PATIENT: SABRINA GEE LOC: [facility]#:[id number] AGE/SX: 43/F ROOM: RE12/12/[address]: Dr. Irvin Vasquez MD : 1980 BED: DIS: 12/12/2023 SPEC #: [id number] RECD: 12/12/23 13:10 STATUS: IRINA WILLIE #: [id number] DELMA: 12/12/23 00:[address]: Irvin Vasquez DEPT: CYTOLOGY RECD BY: Armani Sheppard ENTERED: 12/12/23 13:11 SP TYPE: Fluid OTHR DR: Antionette Hernandez DO Tissues: A - Thyroid gland, NOS B - Thyroid gland, NOS Procedures: Special Stain Group II Surgery Specimen Level IV Cytospin Fluid HEADER OPERATION: Fine needle aspiration PRE-OP DIAGNOSIS: Left thyroid nodule TISSUE SUBMITTED: A. Left thyroid nodule fluid, B- Left thyroid nodule x 4 slides DIAGNOSIS CYTOLOGY A. Left thyroid nodule fluid, fine needle aspiration (cytospin and cellblock); Atypical follicular cells of undetermined significance in the background of chronic lymphocytic thyroiditis ([place] Category III). Adequate for evaluation. See comment. B. Left thyroid nodule, fine needle aspiration (smears); Atypical follicular cells of undetermined significance in the background of chronic lymphocytic thyroiditis ([place] Category III). Adequate for evaluation. See comment. SJ: 12/13/2023 COMMENT A&B. The [place] System for thyroid diagnostic categorization was used in the evaluation of this case. Correlation with clinical, radiologic findings and appropriate follow up are necessary. Per recommendations and a clinician-approved plan (a call was made to the referring doctor about the recommendation), genomic testing (Afirma) has been submitted. Results will be reported as an addendum and faxed to clinician. Case has been reviewed in consultation with Dr. Rojas who concurs with the above diagnosis. IDC:AM CYTOLOGY STUDY Slides are reviewed. CYTOLOGY GROSS A. Received is 40 ml of red cloudy fluid labeled with the patient's name and and designated per the requisition as left thyroid nodule. Submitted for cytology preparation including cell block. B. Received are 4 smears labeled with the patient's name and designated per the requisition as Left thyroid nodule. Submitted for staining. Mr 12/12/23 TC:5 CPT:98483, 50921e3 ADDENDUM ADDENDUM ADDENDUM ADDENDUM ADDENDUM ADDENDUM ADDENDUM 12/24/2023 09:36 ADDENDUM 12/24/2023 09:36 ADDENDUM 12/24/2023 09:36 ADDENDUM 12/24/2023 09:36 ADDENDUM 12/24/2023 09:36 AFIRMA RESULTS REPORT RESULTS INTERPRETATION: The result of this 2.1 cm [place] III nodule A is Afirma GSC benign, which suggests a low risk of cancer of approximately 4%. Please see complete report in e-chart or EMR
[2023-12-14 09:08] LABS: Thyroglobulin Antibody 864.9 IU/mL (0.0-0.9); Thyroid Peroxidase AB > 600 IU/mL (0-34)
== END | disposition home or self-care (01) ==
PROVIDERS: PCP Family Medicine; Referring Provider Surgery; Visit Provider Surgery
DX: E06.3 Autoimmune thyroiditis (principal)
CPT/HCPCS: 36415; 86376; 86800; 88108; 88305; 88313

== ENCOUNTER → 2024-04-17 | Outpatient (CLI) | payer OTHER, BC, SELFPAY ==
[2024-04-17 09:05] LABS: Vitamin D,25 Hydroxy 35.2 ng/mL
[2024-04-17 09:12] LABS: ALB/GLOB Ratio 0.9 RATIO (0.9-2.4); AST(SGOT) 15 U/L (15-37); Alanine Aminotransfer ALT/SGPT 18 U/L (13-56); Albumin, Serum 3.6 g/dL (3.2-5.0); Alkaline Phosphatase 76 U/L (45-117); Anion Gap 2 (5-15); BUN 6 mg/dL (7-18); BUN/Creat Ratio 7.7 RATIO (10-20); Calcium,Total 8.7 mg/dL (8.5-10.1); Chloride 106 mmol/L (98-107); Cholesterol 154 mg/dL (200); Creatinine, Serum 0.78 mg/dL (0.55-1.02); EST Glomerular Filtration Rate 85 mL/min (>60); Est Glom Filt Rate - Afr Amer 103 mL/min (>60); Glucose 117 mg/dL (74-106); High Density Lipoprotein 29 mg/dL; Potassium 3.8 mmol/L (3.5-5.1); Protein, Total 7.6 g/dL (6.4-8.2); Sodium Level 136 mmol/L (136-145); Thyroid Stim Hormone (TSH) 6.39 uIU/mL (0.358-3.74); Triglycerides 173 mg/dL; Very Low Density Lipoprotein 35 mg/dL (5-40)
== END | disposition home or self-care (01) ==
LOC: LAB 07:37
PROVIDERS: PCP Family Medicine; Referring Provider Family Medicine; Visit Provider Family Medicine
DX: I10 Essential (primary) hypertension (principal); E03.9 Hypothyroidism, unspecified; E78.5 Hyperlipidemia, unspecified
CPT/HCPCS: 36415; 80053; 80061; 82306; 84443

== ENCOUNTER → 2024-11-28 | Outpatient (CLI) | payer OTHER, BC, SELFPAY | END | disposition home or self-care (01) | LOC: MFPLAB 14:33 | PROVIDERS: PCP Family Medicine; Referring Provider Family Medicine; Visit Provider Family Medicine | DX: E03.9 Hypothyroidism, unspecified (principal) | CPT/HCPCS: 36415; 84443 ==

== ENCOUNTER → 2024-12-09 | Outpatient (CLI) | payer OTHER, BC, SELFPAY ==
--- NOTE | 2024-12-09 12:02 | US_ITS ---
PROCEDURE: THYROID 12/09/2024 REASON FOR EXAM: 44-year-old female, 1 year follow-up. TECHNIQUE: Thyroid ultrasound COMPARISON: Thyroid ultrasound 10/11/2023. FINDINGS: Right thyroid lobe measures 6.6 x 3.2 x 3.3 cm. Left thyroid lobe measures 6.3 x 3.0 x 3.4 cm. Isthmus thickness is0.7 cm. Thyroid Size: Diffusely enlarged Background Echotexture: Heterogeneous with diffuse hypervascularity and diffuse pseudo nodularity. Thyroid Nodules: One left thyroid nodule is measured, 1.9 x 1.6 x 1.7 cm, solid, isoechoic, wider than tall with smooth margins and no calcifications. TR-3. No suspicious right thyroid nodules. US/Thyroid IMPRESSION: Findings compatible with autoimmune thyroiditis, however laboratory correlation is required for this diagnosis. Small left thyroid nodule, which meets criteria for 1 year follow-up. Reading Location: [facility]
== END | disposition home or self-care (01) ==
PROVIDERS: PCP Family Medicine; Referring Provider Surgery; Visit Provider Surgery
DX: E04.1 Nontoxic single thyroid nodule (principal)
CPT/HCPCS: 76536